=== PATIENT | female | born 1980 | race American Indian/Alaskan Native ===

== ENCOUNTER 2018-09-02 13:20 | Outpatient (CLI) | payer BC, MEDICAID ==
[2018-09-02] MEDS ORDERED: LACTATED RINGERS 1,000 ML IV ONE (13:53)
[2018-09-02 14:30] LABS: Bacteria,Urine 1+ /HPF (Negative); Bilirubin,Urine NEG (Negative); Blood,Urine MOD (Negative); Color,Urine Yellow (Yellow); Mucus,Urine 1+ /HPF; Protein,Urine <15 mg/dL mg/dL (Negative); Urobilinogen,Urine < 2.0 mg/dL (<2.0)
[2018-09-02 14:39] VITALS: BP 115/61
--- NOTE | 2018-09-02 18:53 | Ultrasound Report ---
ULTRASOUND BIOPHYSICAL PROFILE INDICATION / CLINICAL INFORMATION: well being. COMPARISON: None available. FINDINGS: BREATHING MOVEMENT = 2 GROSS BODY MOVEMENT = 2 TONE = 2 QUALITATIVE AMNIOTIC FLUID VOLUME = 2 TOTAL BIOPHYSICAL SCORE = 10/06 AMNIOTIC FLUID INDEX (cm) = 9.8 PRESENTATION: Cephalic. HEART RATE (beats per minute): 121 IMPRESSION: 1. biophysical profile = 10/06 Signer Name: Ed Sparks MD Signed: 09/02/2018 6:49 PM Workstation Name: [id number]
--- NOTE | 2018-09-02 19:50 | Ultrasound Report ---
US OB follow up INDICATION / CLINICAL INFORMATION: non reassuring monitoring. COMPARISON: None available. FINDINGS: presentation is breech. The heart rate is 147 bpm. Amniotic fluid volume is normal with a n JOSE ELIAS of 9.8 cm. The estimated gestational age is 33 weeks by femur length, 34 weeks 5 days by abdomi nal circumference and 33 weeks 1 day by BPD. Signer Name: Jamaal Brandon MD Signed: 09/02/2018 7:46 PM Workstation Name: [id number]
== END 2018-09-02 16:27 | disposition home or self-care (01) ==
LOC: TRG 13:20
PROVIDERS: ATTEND Obstetrics & Gynecology
DX: O47.03 False labor before 37 completed weeks of gestation, third trimester (principal); Z3A.35 35 weeks gestation of pregnancy
CPT/HCPCS: 59025; 76816; 76819; 81001

== ENCOUNTER 2018-09-29 09:15 | Inpatient (IN) | payer MEDICAID ==
--- NOTE | 2018-09-29 08:26 | History and Physical Report ---
History of Present Illness Date of examination: 09/26/18 History of present illness: She presented to labor and delivery for scheduled section due to breech presentation and she desires permanent sterilization. Menstrual History Regularity: irregular Menses every: 28 days Duration: 5 LMP: 12/23/2017 LMP reliability: definite LMP character: normal test type: urine test Date: 02/11/2018 BC at conception: none Planned ? no EDC Confirmation: 10/06/2018 Past History : 7 Term Births: 5 Premature Births: 0 Living Children: 5 Para: 5 Mult. Births: 0 Prev : 0 Aborta: 1 Elect. Ab: 1 Spont. Ab: 0 Ectopics: 0 # 1 Delivery date: 01/05/2001 Weeks Gestation: 39 Delivery type: Hours of labor: >12 Anesthesia type: epidural Delivery location: [facility] Infant Sex: Female weight: [id number] Name: Dina Comments: No problems # 2 Delivery date: 05/14/2009 Weeks Gestation: 41+4 Delivery type: Vaginal Anesthesia type: epidural Delivery location: [facility] Sex: male weight: 7.06 Comments: postterm # 3 Delivery date: 04/22/2012 Weeks Gestation: 39+6 Delivery type: Vaginal Anesthesia type: none Sex: male weight: 8.31 Name: Romero Comments: none # 4 Delivery date: 04/25/2013 Weeks Gestation: 38 Delivery type: Vaginal Anesthesia type: epidural Delivery location: [facility] Sex: male weight: 7.50 Comments: none # 5 Delivery date: 05/08/2014 Weeks Gestation: 39 Delivery type: Vaginal Anesthesia type: none Delivery location: [facility] Sex: female weight: 7.38 Comments: close conception; rapid delivery # 6 Delivery date: 10/24/2017 Weeks Gestation: 8 Delivery type: EAB Comments: Medical Past Medical History: Negative Past Medical History Past Surgical History: negative Past Medical History Anesthesia Complications: negative Anemia: negative Autoimmune Disorder: negative Bleeding Disorder: negative Blood Transfusions: negative Breast Disease: negative Diabetes: negative Heart Disease: negative Hypertension: negative Hepatitis/Liver Disease: negative Kidney Disease/UTI: negative Neurologic/Epilepsy/Migraines: negative Phlebitis/Varicosities: negative Psychiatric: negative Pulmonary Disease/Asthma: negative Thyroid Disease: negative Hospitalizations: negative Surgery (Non-blueprint engineer): negative Abnormal PAP: positive Social Hx: Marital Status: Single Occupation: Daycare Smoking History: Patient has never smoked. Infection History Hx of STD: none HIV Risk Eval: no Hepatitis B Risk Eval: low risk Varicella/Chicken Pox Status: Previous Disease Genetic History ADVANCED MATERNAL AGE Congenital Heart Defect: Mom: no Dad: no Latoya Disease: Mom: no Dad: no Thalassemia Mom: no Dad: no Neural Tube Defect Mom: no Dad: no Down's Syndrome Mom: no Dad: no Ming-Sachs Mom: no Dad: no Sickle Cell Disease/Trait Mom: yes Dad: no Comments: sister + SCT, Hemophilia Mom: no Dad: no Muscular Dystrophy Mom: no Dad: no Cystic Fibrosis Mom: no Dad: no Irving Chorea Mom: no Dad: no Mental Retardation Mom: no Dad: no Fragile X Mom: no Dad: no Other Genetic/Chromosomal Disorder Mom: no Dad: no Child w/other defect Mom: no Dad: no Enviromental Exposures Xray Exposure: no Medication, drug, or alcohol use since LMP: no Chemical/Other Exposure: no Exposure to Cat Liter: no Hx of Parvovirus (Fifth Disease): no Occupational Exposure to Children: none Current Allergies (reviewed today): No known allergies Past History Past Medical History: other (SEE HPI) Past Surgical History: other (SEE HPI) INDUSTRIAL SPRAYPAINTER History: other (SEE HPI) Family/Genetic History: other Social history: single (SEE HPI), full code, other (SEE HPI) - Obstetrical History Expected Date of Delivery: 10/06/18 Actual Gestation: 39 Week(s) 0 Day(s) : 7 Para: 5 Hx # Term Pregnancies: 5 Number of Pregnancies: 0 Spontaneous Abortions: 0 Induced : 1 Number of Living Children: 5 Medications and Allergies Allergies Allergy/AdvReac Type Severity Reaction Status Date / Time No Known Allergies Allergy Verified 09/02/18 13:53 Home Medications Medication Instructions Recorded Confirmed Last Taken Type Ibuprofen [Motrin] 200 mg PO Q6H PRN 04/29/13 05/08/14 04/28/13 21:00 History Ibuprofen [Motrin 800 MG tab] 800 mg PO TID PRN #30 tablet 04/30/13 05/08/14 Unknown Rx Review of Systems Constitutional: weight gain - Physical Exam Breasts: Positive: deferred Cardiovascular: Regular rate Lungs: Positive: Normal air movement Abdomen: Positive: normal appearance Genitourinary (Female): Positive: normal external genitalia Vagina: Positive: normal moisture Uterus: Positive: enlarged Extremities: Positive: edema - Obstetrical FHR: auscultation normal Uterine Contraction Pattern: Absent Results Result Diagrams: 09/29/18 10:07 All other labs normal. Assessment and Plan - Patient Problems (1) Breech presentation, antepartum Current Visit: No Status: Acute Qualifiers: Fetus number: single or unspecified fetus Qualified Code(s): O32.1XX0 - Mat ernal care for breech presentation, not applicable or unspecified Plan to address problem: Discussed indication for primary section. Patient informed the risks of the surgery include bleeding possibly bleeding heavy enough to require blood transfusion, infection possible damage to bowel bladder ureter. All questions answered. Patient agrees to proceed (2) 39 weeks gestation of Current Visit: No Status: Acute (3) Encounter for sterilization Current Visit: Yes Status: Acute Plan to address problem: Patient desires permanent sterilization. She declined temporary contraceptives. She understands the risks of the surgery include bleeding infection possible damage to bowel bladder or ureters. She understands that this surgery would make her permanently sterile. She also understands the approximate 1% failure rate. The patient understands all the above and desires to proceed.
[~2018-09-29 09:15] MED LIST: ANCEF/STERILE WATER 2 GM/20 ML 2 GM/20 ML SYRINGE IV NR; BICITRA PO NR; LACTATED RINGERS 1,000 ML IV SCH; PEPCID IV NR; PITOCin/NS 20 UNIT/1000ML DRIP 20 UNITS/1,000 ML BAG IV SCH; REGLAN IV NR
[2018-09-29 10:22] LABS: Basophils % (Auto) 0.5 % (0.0-1.8); Eosinophils # (Auto) 0.1 K/mm3 (0.0-0.4); Eosinophils % (Auto) 1.2 % (0.0-4.3); Hematocrit 33.8 % (30.3-42.9); Hemoglobin 11.6 gm/dl (10.1-14.3); Lymphocytes # (Auto) 1.9 K/mm3 (1.2-5.4); Lymphocytes % (Auto) 26.1 % (13.4-35.0); Mean Corpuscular HGB Conc 34 % (30-34); Mean Corpuscular Volume 89 fl (79-97); Monocytes # (Auto) 0.5 K/mm3 (0.0-0.8); Monocytes % (Auto) 7.5 % (0.0-7.3); Platelet Count 224 K/mm3 (140-440); Red Cell Distribution Width 14.6 % (13.2-15.2)
--- NOTE | 2018-09-29 10:31 | Anesthesia Day of Surgery ---
Anesthesia Day of Surgery - Day of Surgery Patient Examined: Yes Patient H&P Reviewed: Yes Patient is NPO: Yes
--- NOTE | 2018-09-29 10:31 | Anesthesia Consultation ---
Anesthesia Consult and Med Hx Date of service: 09/29/18 - Airway Anesthetic Teeth Evaluation: Good ROM Head & Neck: Adequate Mental/Hyoid Distance: Adequate Mallampati Class: Class II Intubation Access Assessment: Probably Good - Pulmonary Exam CTA: Yes - Cardiac Exam Cardiac Exam: RRR - Pre-Operative Health Status ASA Pre-Surgery Classification: ASA2 Proposed Anesthetic Plan: Spinal - Pulmonary Hx Asthma: No COPD: No Hx Pneumonia: No - Cardiovascular System Hx Hypertension: No - Central Nervous System Hx Seizures: No CVA: No Hx Psychiatric Problems: No - Endocrine Hx Renal Disease: No Hx End Stage Renal Disease: No Hx Hypothyroidism: No Hx Hyperthyroidism: No - Hematic Hx Anemia: Yes Hx Sickle Cell Disease: No - Other Systems Hx Alcohol Use: No Hx Cancer: No
[2018-09-29] MEDS ORDERED: MARCAINE 0.5% INFILTRATI ONE (10:36)
[2018-09-29] MEDS ORDERED: ANCEF/STERILE WATER 2 GM/20 ML IV ONE (11:15)
[2018-09-29] MEDS ORDERED: ZOFRAN ONE (12:05)
[2018-09-29] MEDS ORDERED: PHENYLEPHRINE/NS Syringe 1,000 MCG/10 ML IV ONE ×2 (12:05)
--- NOTE | 2018-09-29 12:20 | Operative Report ---
Operative Report Operative Report: Date of procedure: 09/29/2018 Pre-operative diagnosis: Intrauterine at 39 weeks with breech presenta tion. Desires permanent sterilization Post-operative diagnosis: Same Procedure name(s): Primary low transverse section with bilateral salpingectomy Surgeon: Albert Oneal MD Fermenter Operator: Donna Roberson, certified nurse asset protection officer Anesthesia: Spinal EBL: 900 mL Complications: None Findings: Patient had a normal uterus tubes and ovaries bilaterally. Male weight 7 lbs. 13 oz. Apgars 8 at 1 minute and 9 at 5 minutes Specimen(s): Portion of the right and left fallopian tube Procedure: The patient was brought to the operating room. A spinal was placed without any complications. She was then placed in left lateral tilt. Prepped and draped in the usual sterile manner. After testing for adequate anesthesia level, a Pfannenstiel incision was made. This incision was taken down to the fascia. The fascia was then nicked in the midline. This incision was extended out laterally with Rosas scissors. The fascia was then sharply and bluntly from the underlying rectus muscles. The rectus muscles were bluntly and sharply . The peritoneum was then entered with the film process operator's fingers. This incision was spread vertically with care not to damage the bladder below. Bladder blade was placed. The bladder flap was then formed sharply and bluntly with Metzenbaum scissors. A transverse incision was made in lower uterine segment. This incision was extended laterally with the operators fingers. The amniotic sac was then entered bluntly with the film process operator's fingers. The infant was footling breech presentation. Both feet were grasped and pulled through the uterine incision. Followed by flexing and extending the lower extremities then raising the breech moving to sweeping flexing and extending the upper extremities and after coming head was then delivered safely. Bulb suction on the mother's abdomen. Cord was double clamped and cut. The was then passed to the nursery personnel who were in attendance. The above scores were given by the nursery personnel. The placenta was then bluntly removed. The uterus was then externalized and wiped clean the remaining products. The uterine incision was closed in layers. The first incision was closed in a locking manner using 0 Vicryl. This was followed by imbricating stitch also with 0 Vicryl. Attention was then switched to the patient's fallopian tubes. Each fallopian tube was identified by its fimbriated end. The fimbria of each tube was grabbed with the Fernando clamp and the mesosalpinx was cut with the Bovie until approximately 2-3 cm from the cornua. The proximal tube were cut at that point with the Bovie. Each tube was removed. Each stump was found to be hemostatic and cauterized with the Bovie. Attention was then switched back to the uterine closure. This closure was hemostatic. The bladder flap was copiously irrigated and found to be hemostatic. The pelvis was copiously irrigated and found to be hemostatic. The uterus was then placed back to the patient's abdomen. Surgicel was placed over the incision. The tubal stumps were inspected and found to be hemostatic. The retractors were removed. The rectus muscles were inspected and found to be hemostatic. The fascia was then closed in a running manner using 0 Vicryl. This incision was hemostatic irrigation Bovie. The skin was reapproximated with 4-0 Vicryl subcuticularly. The patient tolerated procedure well. Her urine was clear. The infant was admitted to the well baby nursery. The patient was accompanied to recovery room in good condition. Instrument count correct times 3.
[2018-09-29] MEDS ORDERED: ZOFRAN IV PRN ×2 (12:31→15:00)
[2018-09-29] MEDS ORDERED: NUBAIN IV PRN (12:31)
[2018-09-29] MEDS ORDERED: DILAUDID IV PRN (12:31)
[2018-09-29] MEDS ORDERED: PHENERGAN PR PRN (12:31)
[2018-09-29] MEDS ORDERED: PHENERGAN PO PRN (12:31)
[2018-09-29] MEDS ORDERED: NARCAN 0.4 MG/1 ML IV PRN ×2 (12:31→15:00)
--- NOTE | 2018-09-29 12:31 | Post Anesthesia Evaluation ---
- Post Anesthesia Evaluation Patient Participated: Yes Airway Patent: Yes Stable Respiratory Function: Yes Nausea/Vomiting: No Temp > 96.8F: Yes Pain Manageable: Yes Adequeate Hydration: Yes Anesthesia Complications: No Block Receding Appropriately: Yes
[2018-09-29] MEDS ORDERED: SODIUM CHLORIDE FLUSH SYRINGE 10 ML IV SCH (13:00)
[2018-09-29] MEDS ORDERED: PITOCin/NS 20 UNIT/1000ML DRIP 20 UNITS/1,000 ML BAG IV SCH (15:00)
[2018-09-29] MEDS ORDERED: LANSINOH TP PRN (15:00)
[2018-09-29] MEDS ORDERED: SODIUM CHLORIDE FLUSH SYRINGE 10 ML IV PRN (15:00)
[2018-09-29] MEDS ORDERED: TORADOL IV PRN (15:00)
[2018-09-29] MEDS ORDERED: TUCKS PAD TP PRN (15:00)
[2018-09-29] MEDS ORDERED: TYLENOL PO PRN (15:00)
[2018-09-29] MEDS ORDERED: MYLICON PO PRN (15:00)
[2018-09-29] MEDS: DILAUDID IV PRN ×2 (15:17→20:14)
[2018-09-29] MEDS: D5LR 1,000 ML IV SCH ×2 (15:18→23:26)
[2018-09-29] MEDS: ANCEF/NS 1 GM/50 ML 1 GM/50 ML BAG IV SCH (21:49)
[2018-09-29] MEDS ORDERED: MILK OF MAGNESIA PO PRN (22:00)
[2018-09-30] MEDS: IBUPROFEN PO PRN ×4 (00:20→22:23)
[2018-09-30] MEDS: NORCO 5/325 PO PRN ×4 (00:21→22:25)
[2018-09-30 00:42] LABS: Hematocrit 27.9 % (30.3-42.9); Hemoglobin 9.3 gm/dl (10.1-14.3)
[2018-09-30] MEDS: ANCEF/NS 1 GM/50 ML 1 GM/50 ML BAG IV SCH (06:09)
--- NOTE | 2018-09-30 07:47 | Progress Note ---
Assessment and Plan Patient doing well, no complaints. Lochia scant, fundus firm, incision dressed - dressing d&I, VSSAF, postop H&H 9.3/27.9. - Patient Problems (1) delivery delivered Current Visit: Yes Status: Acute Plan to address problem: continue postop pathway advance diet and activity as tolerated (2) Anemia due to acute blood loss Current Visit: Yes Status: Acute Plan to address problem: asymptomatic continue PNV Subjective - Subjective Date of service: 09/30/18 Principal diagnosis: postop day #1 s/p primary c/s for breech Patient reports: appetite normal, voiding normally, pain well controlled, ambulating normally, no dizzy ambulation, no flatus, no bowel movement, no nauseated : doing well, bottle feeding (plans on today) Objective - Vital Signs Latest vital signs: Vital Signs Temp Pulse Resp BP BP Pulse Ox 09/30/18 06:08 16 09/30/18 06:06 16 09/30/18 04:49 98.4 F 66 15 93/40 94 09/29/18 23:33 98.5 F 75 16 96/52 98 09/29/18 20:30 99.4 F 76 15 100/49 96 09/29/18 20:14 16 09/29/18 16:58 97.9 F 71 20 97/50 96 09/29/18 13:41 97.3 F L 72 18 97/58 96 09/29/18 13:20 97.8 F 70 22 99/55 100 09/29/18 13:15 70 25 H 96/55 100 09/29/18 12:45 66 25 H 93/50 100 09/29/18 12:30 70 18 94/48 100 09/29/18 12:25 77 22 91/48 100 09/29/18 12:20 92 H 24 95/52 100 09/29/18 12:19 98.2 F 09/29/18 10:11 97.9 F 16 09/29/18 09:45 86 121/70 Intake and Output 09/29/18 09/29/18 09/30/18 15:59 23:59 07:59 Intake Total 1000 1170 480 Output Total 100 500 700 Balance 900 670 -220 Intake: IV 1000 1050 ANCEF/NS 1 GM/50 ML 1 gm 50 In 50 ml @ 100 mls/hr IV Q8H JYOTHI Rx#:[id number] D5lr 1,000 ml @ 125 mls/ 1000 hr IV DIRECT [facility] Rx#: [id number] Oral 120 480 Output: Urine 100 500 700 Indwelling Catheter 500 425 Other: Total, Intake Amount 120 480 Total, Output Amount 500 125 Voiding Method Toilet # Bowel Movements 0 Weight 68.492 kg Estimated Blood Loss 900 - Exam Breasts: Present: normal Cardiovascular: Present: Regular rate Lungs: Present: Clear to auscultation, Normal air movement Abdomen: Present: normal appearance, soft Vulva: both: normal Uterus: Present: normal, firm, fundal height at umbilicus Extremities: Present: normal Deep Tendon Reflex Grade: Normal +2 Incision: Present: normal, dry, dressed - Labs Labs: Abnormal lab results 09/29/18 09/30/18 Range/Units 10:07 00:28 Hgb 9.3 L (10.1-14.3) gm/dl Hct 27.9 L (30.3-42.9) % Bowie % (Auto) 7.5 H (0.0-7.3) %
[2018-09-30] MEDS: FEOSOL PO SCH (14:00)
[2018-09-30] MEDS: PRENATAL VITAMIN PO SCH (14:00)
[2018-10-01] MEDS: FEOSOL PO SCH (09:27)
[2018-10-01] MEDS: PRENATAL VITAMIN PO SCH (09:27)
--- NOTE | 2018-10-01 09:41 | Discharge Summary ---
Providers - Providers Date of Admission: 09/29/18 09:15 Date of discharge: 10/01/18 Attending physician: REN VAZQUEZ 09/29/18 14:07 Consult to Quoter [CONS] Routine Reason For Exam: Primary care physician: REN VAZQUEZ Hospitalization Reason for admission: POD#2, s/p C/S with BTL Condition: Good Disposition: DC-01 TO HOME OR SELFCARE - Discharge Diagnoses (1) Anemia due to acute blood loss Status: Acute Comment: asymptomatic (2) delivery delivered Status: Acute (3) Encounter for sterilization Status: Acute (4) Breech presentation, antepartum Status: Acute Qualifiers: Fetus number: single or unspecified fetus Qualified Code(s): O32.1XX0 - Maternal care for breech presentation, not applicable or unspecified Core Measure Documentation - Palliative Care Palliative Care/ Comfort Measures: Not Applicable - Core Measures Any of the following diagnoses?: none Exam - Physical Exam Narrative exam: Ambulating in room w/o difficulty. Minimal bleeding. She desires discharge home - Constitutional Vitals: Temp Pulse Resp BP Pulse Ox 98.8 F 77 20 105/61 98 10/01/18 00:05 10/01/18 00:05 10/01/18 00:05 10/01/18 00:05 10/01/18 00:05 General appearance: Present: no acute distress (Desires discharge ho,e) - Neck Neck: Present: supple - Respiratory Respiratory effort: normal Respiratory: bilateral: CTA - Cardiovascular Rhythm: regular - Extremities Extremities: no ischemia, No edema - Abdominal General gastrointestinal: Present: soft, normal bowel sounds Female genitourinary: Present: other (FF below umbilicus) - Integumentary Integumentary: Present: clear, warm, dry (incision c/d/i, steristrips present. No s/s infection) - Psychiatric Psychiatric: appropriate mood/affect, intact judgment & insight, memory intact, cooperative Plan Activity: other (No sex, no exercising. Ambulate on your property ~1mile a day. Void frequently. No driving. ) Weight Bearing Status: Full Weight Bearing Diet: regular Wound: open to air, keep clean and dry Special Instructions: no heavy lifting (greater than 25lbs. ) Follow up with: REN VAZQUEZ MD [Primary Care Provider] - 7 Days Prescriptions: Lidocain2.5%/Prilocai2.5% [Emla] 5 gm TP ONCE #1 tube Ibuprofen [Motrin 800 MG tab] 800 mg PO Q6H PRN #30 tablet PRN Reason: Pain oxyCODONE /ACETAMINOPHEN [Percocet 5/325 mg] 1 - 2 tab PO Q4H PRN #20 tablet PRN Reason: Pain, Moderate Ferrous Sulfate [Slow Release Iron 250 MG] 250 mg PO DAILY #60 tablet.er
[2018-10-01] MEDS: IBUPROFEN PO PRN (11:58)
[2018-10-01] MEDS: NORCO 5/325 PO PRN (11:58)
[2018-10-01 17:19] VITALS: BP 117/60
== END 2018-10-01 16:40 | disposition home or self-care (01) | DRG 765 ==
LOC: APU 09:15 → OB 13:56
PROVIDERS: ADMIT Obstetrics & Gynecology; ATTEND Obstetrics & Gynecology
PROC: 10D00Z1 Extraction of Products of Conception, Low, Open Approach (ICD-10-PCS; principal; 2018-09-29)
PROC: 0UB70ZZ Excision of Bilateral Fallopian Tubes, Open Approach (ICD-10-PCS; 2018-09-29)
DX: O32.1XX0 Maternal care for breech presentation, not applicable or unspecified (principal); D62 Acute posthemorrhagic anemia; O99.02 Anemia complicating childbirth; Z37.0 Single live birth; Z3A.39 39 weeks gestation of pregnancy; Z79.899 Other long term (current) drug therapy
CPT/HCPCS: 36415; 85014; 85018; 85025; 86850; 86900; 86901; 88302; G0378; J0690; J0735; J1170; J2370; J2405; J2590; J2765; J7120; J7121